=== PATIENT | male | born 1970 | race Caucasian/White ===

== ENCOUNTER → 2020-12-01 12:14 | Outpatient (CLI) | payer OTHER, MEDICAID, SELFPAY ==
[2020-12-01 19:36] LABS: Add Manual Diff / Slide Review NO; Basophils Absolute Auto 0 /uL (0-100); Basophils Percent Auto 0.2 % (0-2); Eosinophils Absolute Auto 0 /uL (0-450); Hematocrit 44.6 % (41-53); Hemoglobin 14.9 g/dL (13.5-17.5); Lymphocytes Absolute Auto 1700 /uL (1100-4500); Lymphocytes Percent Auto 25.6 % (25-40); Mean Corpuscular HGB Conc 33.4 % (30-36); Mean Corpuscular Volume 92.9 fL (80-100); Monocytes Absolute Auto 600 /uL (0-900); Monocytes Percent Auto 8.3 % (3-14); Neutrophils Absolute Auto 4400 /uL (1500-7000); Neutrophils Percent Auto 65.9 % (50-75); Platelet Count 261 X10^3/uL (150-400); Red Cell Distribution Width 11.9 % (11.6-14.8); White Blood Cell Count 6.7 X10^3/uL (4.5-11.0)
[2020-12-01 19:57] LABS: Alanine Aminotransferase 37 IU/L (<50); Albumin 4.3 g/dL (3.5-5.0); Albumin Globulin Ratio 1.6 (1.0-2.8); Alkaline Phosphatase 55 U/L (38-126); Aspartate Aminotransferase 53 IU/L (17-59); Bilirubin Total 0.6 mg/dL (0.2-1.3); Blood Urea Nitrogen 21 mg/dL (9-20); Calcium 9.9 mg/dL (8.4-10.2); Carbon Dioxide 31 mmol/L (22-32); Chloride 101 mmol/L (98-107); Estimated Glomerular Filt Rate > 60.0 mL/min (>60); Globulin 2.7 g/dL (1.7-4.1); Glucose 97 mg/dL (70-100); HEMOLYSIS < 15 (0-50); Potassium 4.7 mmol/L (3.4-5.1); Sodium 137 mmol/L (137-145)
[2020-12-01 20:47] LABS: HIV 1 & 2 Ab/Ag 4th Gen Combo NEGATIVE (NEGATIVE); Hep C Virus Ab w/Reflex Quant NEGATIVE s/c (NEGATIVE)
[2020-12-03 05:11] LABS: RPR Screen Non Reactive (Non Reactive)
[2020-12-05 18:17] LABS: HSV 2 IGG AB 3.41 index (0.00-0.90); HSV1IGG < 0.91 index (0.00-0.90)
== END ==
PROVIDERS: PCP Family Medicine; Visit Provider Family Medicine
DX: F39 Unspecified mood [affective] disorder (principal); M54.5 Low back pain; R53.83 Other fatigue; Z11.3 Encounter for screening for infections with a predominantly sexual mode of transmission
CPT/HCPCS: 80053; 84443; 85025; 86592; 86695; 86696; 86803; 87389

== ENCOUNTER 2021-08-18 23:30 | Emergency (ER) | payer OTHER, MEDICAID, SELFPAY ==
[2021-08-18 23:35] VITALS: BP 141/84; PULSE 74; RESP 18; TEMP 36.6; O2SAT 99; BMI 26.4
--- NOTE | 2021-08-18 23:57 | DI.CT.S_ITS ---
PROCEDURE: CT HEAD/BRAIN WO CON INDICATIONS: headache TECHNIQUE: Noncontrast 4.5 mm thick angled axial sections acquired from the foramen magnum to the vertex, with coronal and sagittal reformats. For radiation dose reduction, the following was used: automated exposure control, adjustment of mA and/or kV according to patient size. COMPARISON: None. FINDINGS: Image quality: Excellent. CSF spaces: Basal cisterns are patent. Ventricles are normal in size. There is an extra-axial fluid collection isodense to CSF within the left middle cranial fossa measuring to approximately 4.1 x 3.3 cm in transverse dimension. Findings likely represent an arachnoid cyst. There is prominence of the frontal extra-axial spaces bilaterally suggestive of mild cerebral volume loss. Brain: No intracranial hemorrhage, mass, or mass effect. [place]-white matter interface appears preserved. Skull and face: Calvarium and visualized facial bones are intact, without suspicious lesions. Sinuses: Visualized sinuses and mastoids are clear. IMPRESSION: 1. No definite acute intracranial abnormality. 2. Extra-axial fluid collection in the left middle cranial fossa likely represents an arachnoid cyst. Further evaluation may be obtained with MRI if clinically indicated. Dictated by: Remberto Cross M.D. on 08/19/2021 at 0:27 Approved by: Remberto Cross M.D. on 08/19/2021 at 0:29
[2021-08-19] VITALS (7 sets, daily range): BP systolic 126–139; BP diastolic 69–82; PULSE 59–76; RESP 18; O2SAT 97–99
--- NOTE | 2021-08-19 01:49 | DI.CT.S_ITS ---
PROCEDURE: CT ANGIO HEAD AND NECK INDICATIONS: severe sudden headache TECHNIQUE: Noncontrast images were performed earlier in the day and not repeated. After the administration of intravenous contrast, 1 mm thick sections acquired from the aortic arch through the [place]. Post-contrast 4.5 mm thick sections then re-acquired from the foramen magnum to the vertex. 3-dimensional lgqjwyl-omuhnkqtk-nkepfvdnin (MIP) and/or volume rendering reformats were acquired of the central intracranial vasculature and neck separately. COMPARISON: [facility], CT, CT HEAD/BRAIN WO CON, 08/19/2021, 0:04. FINDINGS: Image quality: Somewhat limited by bolus timing, with venous contamination. BRAIN: CSF spaces: Ventricles are normal in size and shape. Basal cisterns are patent. A nonenhancing arachnoid cyst can be seen involving the anterior aspect of the left middle cranial fossa. Brain: No midline shift. No intracranial bleeds or masses. [place]-white matter interface appears intact. Skull and face: Calvarium and facial bones appear intact, without suspicious lesions. Orbits appear normal. Sinuses: A small amount of mucosal thickening is seen within the maxillary sinuses. The paranasal sinuses otherwise appear clear. No abnormal fluid is seen within the mastoid air cells. . HEAD CT ANGIOGRAPHY: Anterior circulation: Intracranial internal carotid arteries are normal in size and flow. There is a diminutive right A1 segment, with a corresponding robust left A1 segment. This is considered to be a normal developmental variant of the [place], of typically no clinical consequence. The flow within the paired anterior cerebral arteries is otherwise normal and symmetric. The flow within the middle cerebral arteries is normal and symmetric. The anterior communicating artery is seen. No aneurysms are seen. Posterior circulation: Visualized portions of the vertebral arteries demonstrate normal caliber, and join to form a normal appearing basilar artery. There is a prominent right posterior communicating artery seen, with an accompanying diminutive right P1 segment. This is attributed to a type origin of the right posterior cerebral artery, which is considered to be a normal developmental variant of typically no clinical consequence. Flow within the posterior cerebral arteries is normal and symmetric. No aneurysms are seen. NECK CT ANGIOGRAPHY: Carotid system: The great vessels demonstrate a conventional anatomy as they arise from the aortic arch. The origins of the common carotid arteries appear patent. The common carotid arteries demonstrate normal caliber and courses. The bifurcation regions are both widely patent. The internal carotid arteries demonstrate normal calibers and courses. Posterior circulation: The origins of the vertebral arteries both appear widely patent. The more superior extracranial portions of both vertebral arteries also demonstrate normal courses and calibers. The left vertebral artery is dominant to the right. Soft tissues: Visualized neck soft tissues demonstrate no suspicious abnormalities. Bones: No suspicious bony lesions. Visualized cervical spine appears normally aligned. Cervical spine degenerative changes are seen, with at least moderate disc space narrowing at C6-C7. IMPRESSION: No aneurysms are seen. No significant intracranial arterial abnormality is seen. Within the arteries of the neck, no hemodynamically significant stenosis can be seen. Incidental note is made of: Left middle cranial fossa arachnoid cyst [id number] developmental anomalies Left vertebral artery dominant to the right Focal C6-C7 degenerative change Note: No significant discrepancy from the preliminary report. Any quantitative measurements of stenosis were performed using NASCET criteria. Dictated by: Spencer Myles M.D. on 08/19/2021 at 8:07 Approved by: Spencer Myles M.D. on 08/19/2021 at 8:11
[2021-08-19 02:16] LABS: Add Manual Diff / Slide Review NO; Basophils Absolute Auto 0 /uL (0-100); Basophils Percent Auto 0.6 % (0-2); Eosinophils Absolute Auto 0 /uL (0-450); Eosinophils Percent Auto 0.6 % (2-4); Hematocrit 39.5 % (41-53); Hemoglobin 13.6 g/dL (13.5-17.5); Lymphocytes Absolute Auto 2300 /uL (1100-4500); Lymphocytes Percent Auto 34.2 % (25-40); Mean Corpuscular HGB Conc 34.5 % (30-36); Mean Corpuscular Hemoglobin 31.4 PG (26-34); Mean Corpuscular Volume 91.1 fL (80-100); Monocytes Absolute Auto 600 /uL (0-900); Monocytes Percent Auto 8.6 % (3-14); Neutrophils Absolute Auto 3800 /uL (1500-7000); Platelet Count 229 X10^3/uL (150-400); Red Blood Cell Count 4.33 X10^6/uL (4.5-5.9); Red Cell Distribution Width 12.2 % (11.6-14.8); White Blood Cell Count 6.8 X10^3/uL (4.5-11.0)
[2021-08-19 02:23] LABS: Alanine Aminotransferase 24 IU/L (<50); Albumin 4.3 g/dL (3.5-5.0); Albumin Globulin Ratio 1.5 (1.0-2.8); Alkaline Phosphatase 42 U/L (38-126); Aspartate Aminotransferase 32 IU/L (17-59); BUN Creatinine Ratio 20.9 (6-22); Bilirubin Total 0.7 mg/dL (0.2-1.3); Blood Urea Nitrogen 19 mg/dL (9-20); Calcium 8.8 mg/dL (8.4-10.2); Carbon Dioxide 27 mmol/L (22-32); Chloride 101 mmol/L (98-107); Estimated Glomerular Filt Rate > 60.0 mL/min (>60); Globulin 2.8 g/dL (1.7-4.1); Glucose 99 mg/dL (70-100); HEMOLYSIS < 15 (0-50); Potassium 3.9 mmol/L (3.4-5.1); Sodium 135 mmol/L (137-145); Total Protein 7.1 g/dL (6.3-8.2)
[2021-08-19] MEDS: SODIUM CHLORIDE 0.9% 1,000 ML 1000 ML IV ×2 (02:49→06:19)
--- NOTE | 2021-08-19 03:03 | ED_ITS ---
HPI - Headache <Bharat Manzanares DO - Last Filed: 08/19/21 19:08> General Chief Complaint: Headache Stated Complaint: Hx of head trauma/headache/nausea Time Seen by Provider: 08/18/21 23:34 Mode of arrival: Ambulatory History of Present Illness HPI Narrative: 51-year-old male nonsmoker with history of mental health diagnoses and a prior closed head injury 5 years ago after a skiing injury presents with 2 days of generalized headache. He denies any obvious provocation or palliation. He denies any injury and takes no blood thinners. He has had no neck pain or focal neurologic findings such as numbness, tingling or weakness. He does state that he woke up 2 days ago with the severe headache and was sweaty for no apparent reason. He has seen his primary care provider who encouraged him to come [place] hence his decision to visit us. He denies runny nose, sore throat or cough. He has no chest pain or shortness of breath. He is otherwise well and free of complaint that his relative baseline Related Data Previous Rx's Medication Instructions Recorded ketorolac 10 mg tablet 10 mg PO Q6H PRN #14 tab 08/19/21 ondansetron 4 mg disintegrating 4 mg PO Q4H PRN #20 tab 08/19/21 tablet ondansetron 4 mg disintegrating 4 mg PO TID-QID PRN #10 tab 08/19/21 tablet pantoprazole 40 mg tablet,delayed 40 mg PO DAILY #30 tab 08/19/21 release (Protonix) Allergies Allergy/AdvReac Type Severity Reaction Status Date / Time No Known Drug Allergies Allergy Verified 08/19/21 04:26 Review of Systems <Bharat Manzanares DO - Last Filed: 08/19/21 19:08> Review of Systems Narrative: GENERAL: Denies chills, fatigue, malaise, fever, sweats. HEENT: Denies sinus pain, ear pain, sore throat, difficulty swallowing, dizziness. RESPIRATORY: Denies dyspnea, cough, wheezing, hemoptysis, sputum. CARDIOVASCULAR: Denies chest pain, palpitations, orthopnea, edema, GASTROINTESTINAL: Denies nausea, vomiting, abdominal pain, diarrhea, constipation, melena. : Denies dysuria, frequency, incontinence, hematuria, urinary retention. MUSCULOSKELETAL: denies weakness, joint pain, or bony pain SKIN: Denies rash, skin lesions, or other NEUROLOGIC: See HPI PSYCHIATRIC: No concerning psychosocial issues. 12 point review of systems is negative except for those stated above Patient History <Bharat Manzanares DO - Last Filed: 08/19/21 19:08> Social History Smoking Status: Never smoker Smoking Status: Never smoker Substance Use Type: marijuana Exam <Bharat Manzanares DO - Last Filed: 08/19/21 19:08> Narrative Exam Narrative: GENERAL: [51] year old patient appears stated age. Well-developed patient, in mild distress. HEAD: Atraumatic. Normocephalic. EYES: Pupils equal round and reactive. Extraocular motions intact. No scleral icterus. No injection or drainage. ENT: Nose without bleeding, purulent drainage. Throat without erythema, tonsillar hypertrophy or exudate. Airway patent. NECK: Trachea midline. Non tender CARDIOVASCULAR: Regular rate and rhythm without murmurs, gallops, or rubs. RESPIRATORY: Clear to auscultation. Breath sounds equal bilaterally. No wheezes, rales, or rhonchi. GASTROINTESTINAL: Abdomen soft, non-tender, nondistended. EXTREMITIES: No edema or joint tenderness. BACK: Nontender without deformity or crepitance. No flank tenderness. NEURO: AOx3. SKIN: No rash or erythema of visible areas NIH Stroke Scale 1a. LOC: Patient is alert and keenly responsive (0) 1b. LOC Questions: Patient answers both LOC questions accurately (0) 1c. LOC Commands: Patient performs both tasks correctly (0) 2. Best Gaze: Normal (0) 3. Visual: No visual loss (0) 4. Facial palsy: Normal symmetrical movements (0) 5. Motor arm: No drift (0) 6. Motor leg: No drift (0) 7. Limb ataxia: Absent (0) 8. Sensory: Normal (0) 9. Best language: No aphasia; normal (0) 10. Dysarthria: Normal (0) 11. Extinction and inattention: No abnormality (0) NIHSS: 0 Initial Vital Signs Initial Vital Signs: Vital Signs Temperature 98 F 08/18/21 23:35 Pulse Rate 74 08/18/21 23:35 Respiratory Rate 18 08/18/21 23:35 Blood Pressure 141/84 H 03/25/22 23:35 Pulse Oximetry 99 08/18/21 23:35 <Octaviano Jones MD - Last Filed: 08/19/21 21:16> Initial Vital Signs Initial Vital Signs: Vital Signs Temperature 98 F 08/18/21 23:35 Pulse Rate 74 08/18/21 23:35 Respiratory Rate 18 08/18/21 23:35 Blood Pressure 141/84 H 08/18/21 23:35 Pulse Oximetry 99 08/18/21 23:35 Course <Bharat Manzanares DO - Last Filed: 08/19/21 19:08> Orders Ordered: Discontinued Medications Acetaminophen (Acetaminophen 325 Mg Tablet) 975 mg PO NOW ONE Stop: 08/19/21 04:50 Last Admin: 08/19/21 04:55 Dose: 975 mg Documented by: JOHNATHON Sodium Chloride (Normal Saline 0.9%) 1,000 mls @ 1,000 mls/hr IV BOLUS ONE Stop: 08/19/21 02:48 Last Infusion: 08/19/21 06:56 Dose: 0 mls/hr Documented by: Admin: 08/19/21 02:49 Dose: 1,000 mls/hr Documented by: JOHNATHON Sodium Chloride (Normal Saline 0.9%) 1,000 mls @ 1,000 mls/hr IV BOLUS ONE Stop: 08/19/21 07:06 Last Infusion: 08/19/21 08:55 Dose: 0 mls/hr Documented by: Admin: 08/19/21 06:19 Dose: 1,000 mls/hr Documented by: JOHNATHON Ketorolac Tromethamine (Ketorolac 30 Mg/Ml Vial) 15 mg IV NOW ONE Stop: 08/19/21 04:11 Last Admin: 08/19/21 04:15 Dose: 15 mg Documented by: RAMÓN Metoclopramide HCl (Metoclopramide 10 Mg/2 Ml Inj) 10 mg IV NOW ONE Stop: 08/19/21 06:08 Last Admin: 08/19/21 06:19 Dose: 10 mg Documented by: JOHNATHON Ondansetron HCl (Ondansetron 4 Mg/2 Ml Inj) 4 mg IV NOW ONE Stop: 08/19/21 04:50 Last Admin: 08/19/21 04:55 Dose: 4 mg Documented by: JOHNATHON Pantoprazole Sodium (Pantoprazole 40 Mg Vial) 40 mg IV NOW ONE Stop: 08/19/21 06:08 Last Admin: 08/19/21 06:19 Dose: 40 mg Documented by: JOHNATHON Consultations Consultation #1: discussed large arachnoid cyst [place] CT[place] [facility] [place] reviewed clinical course and has viewed images and states there is little to no likelihood that this is contributing to his symptoms and almost surely an incidental finding. Vital Signs Vital signs: Vital Signs - 8 hr 08/19/21 03:00 08/19/21 04:24 08/19/21 06:27 Pulse Rate 72 76 68 Respiratory Rate 18 18 18 Blood Pressure 131/79 128/82 128/69 Pulse Oximetry 99 98 98 08/19/21 08:56 08/19/21 08:57 08/19/21 09:00 Pulse Rate 62 59 L Respiratory Rate Blood Pressure 126/76 126/82 Pulse Oximetry 97 97 <Octaviano Jones MD - Last Filed: 08/19/21 21:16> Course Course Narrative: Care was assumed from Dr. Manzanares at change of shift. Headache and nausea resolv ed with meds and IV hydration. A 4.1x3.3cm arachnoid cyst is noted in the left middle cranial fossa. He is using OTC analgesics. I sent a prescription for Zofran to his pharmacy in [place], [place]. I did discuss the case with a local neurologist, he feels the patient should initial follow-up with his PCM for headache management and be referred to a neurologist --as needed.Radha Jones MD Orders Ordered: Discontinued Medications Acetaminophen (Acetaminophen 325 Mg Tablet) 975 mg PO NOW ONE Stop: 08/19/21 04:50 Last Admin: 08/19/21 04:55 Dose: 975 mg Documented by: JOHNATHON Sodium Chloride (Normal Saline 0.9%) 1,000 mls @ 1,000 mls/hr IV BOLUS ONE Stop: 08/19/21 02:48 Last Infusion: 08/19/21 06:56 Dose: 0 mls/hr Documented by: Admin: 08/19/21 02:49 Dose: 1,000 mls/hr Documented by: JOHNATHON Sodium Chloride (Normal Saline 0.9%) 1,000 mls @ 1,000 mls/hr IV BOLUS ONE Stop: 08/19/21 07:06 Last Infusion: 08/19/21 08:55 Dose: 0 mls/hr Documented by: Admin: 08/19/21 06:19 Dose: 1,000 mls/hr Documented by: JOHNATHON Ketorolac Tromethamine (Ketorolac 30 Mg/Ml Vial) 15 mg IV NOW ONE Stop: 08/19/21 04:11 Last Admin: 08/19/21 04:15 Dose: 15 mg Documented by: RAMÓN Metoclopramide HCl (Metoclopramide 10 Mg/2 Ml Inj) 10 mg IV NOW ONE Stop: 08/19/21 06:08 Last Admin: 08/19/21 06:19 Dose: 10 mg Documented by: JOHNATHON Ondansetron HCl (Ondansetron 4 Mg/2 Ml Inj) 4 mg IV NOW ONE Stop: 08/19/21 04:50 Last Admin: 08/19/21 04:55 Dose: 4 mg Documented by: JOHNATHON Pantoprazole Sodium (Pantoprazole 40 Mg Vial) 40 mg IV NOW ONE Stop: 08/19/21 06:08 Last Admin: 08/19/21 06:19 Dose: 40 mg Documented by: JOHNATHON Vital Signs Vital signs: Vital Signs - 8 hr 08/19/21 03:00 08/19/21 04:24 08/19/21 06:27 Pulse Rate 72 76 68 Respiratory Rate 18 18 18 Blood Pressure 131/79 128/82 128/69 Pulse Oximetry 99 98 98 08/19/21 08:56 08/19/21 08:57 08/19/21 09:00 Pulse Rate 62 59 L Respiratory Rate Blood Pressure 126/76 126/82 Pulse Oximetry 97 97 MDM - Headache <Bharat Manzanares DO - Last Filed: 08/19/21 19:08> Lab Data Result diagrams: 08/19/21 02:00 08/19/21 02:00 Labs: Lab Results 08/19/21 08/19/21 08/19/21 Range/Units 02:00 02:00 04:15 WBC 6.8 (4.5-11.0) X10^3/uL RBC 4.33 L (4.5-5.9) X10^6/uL Hgb 13.6 (13.5-17.5) g/dL Hct 39.5 L (41-53) % MCV 91.1 (80-100) fL MCH 31.4 (26-34) PG MCHC 34.5 (30-36) % RDW 12.2 (11.6-14.8) % Plt Count 229 (150-400) X10^3/uL Neut % (Auto) 56.0 (50-75) % Lymph % (Auto) 34.2 (25-40) % [place] % (Auto) 8.6 (3-14) % Eos % (Auto) 0.6 L (2-4) % Baso % (Auto) 0.6 (0-2) % Neut # (Auto) 3800 (3801-8429) /uL Lymph # (Auto) 2300 (6852-2507) /uL [place] # (Auto) 600 (0-900) /uL Eos # (Auto) 0 (0-450) /uL Baso # (Auto) 0 (0-100) /uL Sodium 135 L (137-145) mmol/L Potassium 3.9 (3.4-5.1) mmol/L Chloride 101 (98-107) mmol/L Carbon Dioxide 27 (22-32) mmol/L BUN 19 (9-20) mg/dL Creatinine 0.91 (0.66-1.25) mg/dL Estimated GFR > 60.0 (>60) mL/min BUN/Creatinine Ratio 20.9 (6-22) Glucose 99 (70-100) mg/dL Calcium 8.8 (8.4-10.2) mg/dL Total Bilirubin 0.7 (0.2-1.3) mg/dL AST 32 (17-59) IU/L ALT 24 (<50) IU/L Alkaline Phosphatase 42 (38-126) U/L Total Protein 7.1 (6.3-8.2) g/dL Albumin 4.3 (3.5-5.0) g/dL Globulin 2.8 (1.7-4.1) g/dL Albumin/Globulin Ratio 1.5 (1.0-2.8) SARS-CoV-2 (PCR) Negative (Negative) Influenza A (RT-PCR) Flu a negative (NEGATIVE) Influenza B (RT-PCR) Flu b negative (NEGATIVE) Point of Care Testing Glucose POC [address] scan - head: Radiologist's Impression: Chart Viewer Diagnostics Subcategory All Activity ??:?? All Time ??:?? All Subcategories Filter Laboratory Imaging Microbiology Pathology Blood Bank Tests Cardiovascular Other Specialty DATE TYPE STATUS REF RANGE/AUTHOR Hx Today 01:49 Head/Neck CTA ? 08/18/21 23:[address] Signed Remberto Cross Fielder J ED 51, M?1970 MRN#? [id number] REG ER,?Main ED??R06?? 190.5cm 96.162kg BMI: 26.5kg/m? Headache Acc#? [id number] Resus Status Not Ordered No Hx Avail Special Indicators No Data to Display Home Meds Prescription Monitoring Program No Data to Display Allergies No Known Drug Allergies Problems No Data to Display Vital Signs Today 06:27 BP 128/69? Pulse 68? Resp 18? O2 Sat 98? Delivery Room Air? Diagnostics Reports Dhruv Savage??51??M??1970 ? Allergy/Adv: No Known Drug Allergies (More??) Close Head/Neck CTA 08/19/[address] (Signed) Remberto Cross - 08/18/21 Launch?[place] [address] CT Scan Report Signed Patient: Dhruv Savage MR#: [id number] : 1970 Acct:[id number] Age/Sex: 51 / M Date of Service: 08/18/21 Loc: ED Accession Number: [id number] ?? Procedure: CT head/brain wo con Ordering Provider: Bharat Manzanares D.O. PROCEDURE:? CT HEAD/BRAIN WO CON ? INDICATIONS:? headache ? TECHNIQUE:? Noncontrast 4.5 mm thick angled axial sections acquired from the foramen magnum to the vertex, with coronal and sagittal reformats.? For radiation dose reduction, the following was used:? automated exposure control, adjustment of mA and/or kV according to patient size.? ? COMPARISON:? None. ? FINDINGS:? Image quality:? Excellent.? ? CSF spaces:? Basal cisterns are patent.? Ventricles are normal in size.? There is an extra-axial fluid collection isodense to CSF within the left middle cranial fossa measuring to approximately 4.1 x 3.3 cm in transverse dimension.? Findings likely represent an arachnoid cyst.? There is prominence of the frontal extra-axial spaces bilaterally suggestive of mild cerebral volume loss. ? Brain:? No intracranial hemorrhage, mass, or mass effect.? [place]-white matter interface appears preserved.? ? Skull and face:? Calvarium and visualized facial bones are intact, without suspicious lesions.? ? Sinuses:? Visualized sinuses and mastoids are clear.? ? IMPRESSION:? ? 1. No definite acute intracranial abnormality. ? 2. Extra-axial fluid collection in the left middle cranial fossa likely represents an arachnoid cyst.? Further evaluation may be obtained with MRI if clinically indicated. ? ? Dictated by: Remberto Cross M.D. on 08/19/2021 at 0:27 ? ? Approved by: Remberto Cross M.D. on 08/19/2021 at 0:29 ? CTA Head/Neck: Radiologist's Impression: No high-grade stenosis, widely patent cervical vertebral arteries, no aneurysm or AVM. Arachnoid cyst as noted previously MDM Narrative Medical decision making narrative: Headache considerations include, but not limited to: Subarachnoid hemorrhage, but unlikely as patient denies sudden onset of pain, not worst of life, or neck pain Meningitis considered, but thought unlikely given lack of Brudzinski's, Kernig's sign, altered mental status or fever Giant cell arteritis considered, but thought unlikely given lack of unilateral findings, pain in catholic, vision change HTN Emergency considered, but thought unlikely given normal vitals Other serious diagnoses considered unlikely given lack of red flag findings such as sudden onset, increasing frequency, immunocompromise, systemic signs (fever, chills, stiff neck, or rash), focal neurologic findings, trauma, blood thinners, etc. Patient's symptoms improved over duration of stay with above-stated therapies. Findings and discharge diagnosis discussed with patient/family followed by verbalization of understanding Return precautions discussed with patient/family whom verbalize understanding. <Octaviano Jones MD - Last Filed: 08/19/21 21:16> Lab Data Labs: Lab Results 03/26/22 03/26/22 03/26/22 Range/Units 02:00 02:00 04:15 WBC 6.8 (4.5-11.0) X10^3/uL RBC 4.33 L (4.5-5.9) X10^6/uL Hgb 13.6 (13.5-17.5) g/dL Hct 39.5 L (41-53) % MCV 91.1 (80-100) fL MCH 31.4 (26-34) PG MCHC 34.5 (30-36) % RDW 12.2 (11.6-14.8) % Plt Count 229 (150-400) X10^3/uL Neut % (Auto) 56.0 (50-75) % Lymph % (Auto) 34.2 (25-40) % [place] % (Auto) 8.6 (3-14) % Eos % (Auto) 0.6 L (2-4) % Baso % (Auto) 0.6 (0-2) % Neut # (Auto) 3800 (8514-8579) /uL Lymph # (Auto) 2300 (6083-1835) /uL [place] # (Auto) 600 (0-900) /uL Eos # (Auto) 0 (0-450) /uL Baso # (Auto) 0 (0-100) /uL Sodium 135 L (137-145) mmol/L Potassium 3.9 (3.4-5.1) mmol/L Chloride 101 (98-107) mmol/L Carbon Dioxide 27 (22-32) mmol/L BUN 19 (9-20) mg/dL Creatinine 0.91 (0.66-1.25) mg/dL Estimated GFR > 60.0 (>60) mL/min BUN/Creatinine Ratio 20.9 (6-22) Glucose 99 (70-100) mg/dL Calcium 8.8 (8.4-10.2) mg/dL Total Bilirubin 0.7 (0.2-1.3) mg/dL AST 32 (17-59) IU/L ALT 24 (<50) IU/L Alkaline Phosphatase 42 (38-126) U/L Total Protein 7.1 (6.3-8.2) g/dL Albumin 4.3 (3.5-5.0) g/dL Globulin 2.8 (1.7-4.1) g/dL Albumin/Globulin Ratio 1.5 (1.0-2.8) SARS-CoV-2 (PCR) Negative (Negative) Influenza A (RT-PCR) Flu a negative (NEGATIVE) Influenza B (RT-PCR) Flu b negative (NEGATIVE) Point of Care Testing Glucose POC 92 Discharge Plan Departure Patient Disposition: Home Clinical Impression: Headache Instructions: DI for Headache Activity Restrictions/Additional Instructions: *You have been diagnosed with [ Headache ] *What to do: *Take medications as directed. I sent a few prescriptions to your pharmacy *Follow up with your primary care provider in 2-3 days, call for an appointment. Let them know you were seen in the Emergency Department and that we ask that you be seen in follow up *Return to ER if you should have any new, worsening or concerning symptoms, such as [ fever > 101F, neck pain or stiffness, vomiting, confusion, seizure, fo naun weakness, vision change, speech deficit or other concerning symptoms ] Prescriptions: New ketorolac 10 mg tablet 10 mg PO Q6H PRN (Reason: pain) Qty: 14 0RF pantoprazole [Protonix] 40 mg tablet,delayed release (DR/EC) 40 mg PO DAILY Qty: 30 0RF ondansetron 4 mg tablet,disintegrating 4 mg PO TID-QID PRN (Reason: nausea and vomiting) Qty: 10 0RF ondansetron 4 mg tablet,disintegrating 4 mg PO Q4H PRN (Reason: nausea and vomiting) Qty: 20 0RF
[2021-08-19] MEDS: KETOROLAC 30 MG/ML VIAL 15 MG IV (04:15)
[2021-08-19] MEDS: ONDANSETRON 4 MG/2 ML INJ IV (04:55)
[2021-08-19] MEDS: ACETAMINOPHEN 325 MG TABLET 975 MG PO (04:55)
[2021-08-19 05:06] LABS: Influenza A - CEPHEID Flu A NEGATIVE (NEGATIVE); Influenza B - CEPHEID Flu B NEGATIVE (NEGATIVE)
[2021-08-19 05:11] LABS: COVID-19 CEPHEID PCR (VTM/NP) Negative (Negative)
[2021-08-19] MEDS: METOCLOPRAMIDE 10 MG/2 ML INJ IV (06:19)
[2021-08-19] MEDS: PANTOPRAZOLE 40 MG VIAL IV (06:19)
== END 2021-08-19 09:14 | disposition home or self-care (01) ==
PROVIDERS: Emergency Provider Emergency Medicine
DX: R51.9 Headache, unspecified (principal); G93.0 Cerebral cysts; Z20.822 Contact with and (suspected) exposure to COVID-19
CPT/HCPCS: 36415; 70450; 70496; 70498; 80053; 82962; 85025; 87635; 96361; 96374; 96375; 99284; C9803; C9113; J1885; J2405; J2765; Q9967

== ENCOUNTER → 2023-04-02 07:51 | Outpatient (CLI) | payer OTHER, MEDICAID, SELFPAY ==
--- NOTE | 2023-04-02 07:55 | DI.MRI.S_ITS ---
PROCEDURE: MR CERVICAL SPINE WO CON INDICATIONS: Cervical radiculopathy TECHNIQUE: Noncontrast sagittal T1 spin echo and T2 fast spin echo, sagittal STIR, foraminal oblique sagittal T2 fast spin echo, and axial gradient echo or T2 fast spin echo through the cervical spine. COMPARISON: [facility], CT, CT ANGIO HEAD AND NECK, 08/19/2021, 2:32. [facility]), CR, XR CERVICAL SPINE 2V OR 3V, 04/27/2022, 16:38. FINDINGS: Image quality: Excellent. Alignment and Curvature: There is overall straightening of the normal cervical lordosis. No focal AP alignment abnormality is seen. Bone Marrow: Marrow demonstrates normal overall signal. Spinal Cord: Visualized spinal cord has normal size and signal. No cerebellar tonsillar herniation. Paraspinous Soft Tissues: No paravertebral masses. Prevertebral soft tissues are normal in thickness. C2-C3: Normal appearance. C3-C4: No significant abnormality is seen. C4-C5: The disc height and disk signal are well-preserved. A mild degree of generalized disc osteophyte complex is seen. Mild to moderate facet hypertrophy is seen. There is mild right-sided and minimal left-sided neural foraminal narrowing. Minimal central canal narrowing is seen. C5-C6: The disc height and disk signal are well-preserved. Mild to moderate disc osteophyte complex is seen, which is eccentric to the right. There is a right subarticular/foraminal disc osteophyte protrusion, as on series 6, image 30. Moderate facet joint hypertrophy is seen. There is moderate to severe right-sided and moderate left-sided neural foraminal narrowing. Mild to moderate central canal narrowing is seen, with minimal mass effect upon the ventral spinal cord. C6-C7: Moderate loss of disc height is seen. Loss of disc signal is seen. Moderate disc osteophyte complex is seen, which is eccentric to the left. There is a central/left disc osteophyte protrusion. Mild to moderate facet hypertrophy is seen. Moderate to severe bilateral neural foraminal narrowing is seen at this level. Moderate central canal narrowing is seen. There is associated mass effect upon the ventral spinal cord. C7-T1: Normal appearance. IMPRESSION: Multiple levels of cervical spine degenerative change can be seen, which are overall worst at the C6-C7 level. Straightening of the normal cervical lordosis is seen, which is commonly observed in patients with muscular spasm. Dictated by: Spencer Myles M.D. on 04/02/2023 at 13:11 Approved by: Spencer Myles M.D. on 04/02/2023 at 13:16
--- NOTE | 2023-04-02 07:55 | DI.MRI.S_ITS ---
PROCEDURE: MR LUMBAR SPINE WO CON INDICATIONS: Lumbar radiculopathy TECHNIQUE: Noncontrast sagittal T1 spin echo and T2 fast echo, sagittal STIR, and T2 fast spin echo through the lumbar spine. In cases with scoliosis, additional coronal T2 fast spin echo may be performed. COMPARISON: [facility], MR, MR CERVICAL SPINE WO CON, 04/02/2023, 8:09. [facility] ([place]), CR, XR LUMBAR SPINE 2-3V, 04/27/2022, 16:38. FINDINGS: Image quality: Diagnostic, with note made of motion artifact. Alignment and Curvature: There is overall straightening of the normal lumbar lordosis. Minimal retrolisthesis can be seen at the L4-L5 level. There is mild grade 1 retrolisthesis at L5-S1. Bone Marrow: Marrow is of normal overall signal. No acute vertebral body compression fractures. Spinal Cord: Conus medullaris terminates at the L1 level. Visualized cord demonstrates normal signal and size. Paraspinous Soft Tissues: No paravertebral masses. T12-L1: Normal appearance. L1-L2: No significant abnormality is seen. L2-L3: Normal appearance. L3-L4: The disc height and disk signal are well-preserved. Mild to moderate disc bulge is seen, with a mild central disc protrusion. Mild facet joint hypertrophy is seen. There is mild right-sided and no significant left-sided neural foraminal narrowing. Minimal central canal narrowing is seen. L4-L5: Mild loss of disc height is seen. Loss of disc signal is seen. Moderate disc bulge is seen, which is eccentric to the left. There is a mild central/left disc extrusion, with mild inferior migration of the disc material. There is moderate right-sided and mild left-sided facet hypertrophy. There is moderate left-sided and mild right-sided neural foraminal narrowing. Moderate central canal narrowing is seen. L5-S1: The disc height is well-preserved. Loss of disc signal is seen at this level. Mild to moderate disc bulge is seen. There is a central/right disc extrusion seen, as on series 8, image 34 and on series 5, image 8. Mild to moderate facet hypertrophy is seen. There is moderate left-sided and no significant right-sided neural foraminal narrowing. Moderate central canal narrowing is seen. IMPRESSION: Focal lower lumbar spine degenerative changes are seen, with disc extrusions seen at the L4-L5 and the L5-S1 levels. There is moderate right-sided neural foraminal narrowing at L4-L5 and moderate left-sided neural foraminal narrowing at L5-S1. Dictated by: Spencer Myles M.D. on 04/02/2023 at 13:16 Approved by: Spencer Myles M.D. on 04/02/2023 at 13:19
[2023-04-02 11:30] LABS: Alanine Aminotransferase 44 IU/L (<50); Albumin 3.9 g/dL (3.5-5.0); Albumin Globulin Ratio 1.4 (1.0-2.8); Alkaline Phosphatase 54 U/L (38-126); Aspartate Aminotransferase 61 IU/L (17-59); BUN Creatinine Ratio 16.5 (6-22); Bilirubin Total 0.8 mg/dL (0.2-1.3); Blood Urea Nitrogen 17 mg/dL (9-20); Calcium 9.6 mg/dL (8.4-10.2); Carbon Dioxide 28 mmol/L (22-32); Chloride 104 mmol/L (98-107); Cholesterol 187 mg/dL (140-199); Estimated Glomerular Filt Rate > 60 mL/min (>60); Globulin 2.7 g/dL (1.7-4.1); Glucose 92 mg/dL (70-100); HDL Cholesterol 50 mg/dL (40-60); HEMOLYSIS < 15 (0-50); LDL Cholesterol Calculated 122 mg/dL (<100); Potassium 4.2 mmol/L (3.4-5.1); Sodium 137 mmol/L (137-145); Total Protein 6.6 g/dL (6.3-8.2); Triglycerides 77 mg/dL (35-150)
[2023-04-02 21:54] LABS: Prostate Specific Antigen Scrn 0.739 ng/mL (0.1-4.0)
[2023-04-03 05:32] LABS: HBsAg Screen Negative (Negative); Hepatitis A Antibody IgM Negative (Negative); Hepatitis B Core Antibody IgM Negative (Negative); Hepatitis C Antibody Non Reactive (Non Reactive); RPR Screen Non Reactive (Non Reactive)
[2023-04-11 08:13] LABS: Percent Free Testosterone 1.91 % (1.50-4.20); Testosterone Free 7.01 ng/dL (5.00-21.00); Testosterone Total 367.1 ng/dL (264.0-916.0)
[2023-04-29 10:15] LABS: Treponema pallidum Antibodies Non Reactive
== END ==
PROVIDERS: Physician Assistant Medical; PCP Family Medicine; Referring Provider Anesthesiology; Visit Provider Anesthesiology
DX: M47.22 Other spondylosis with radiculopathy, cervical region (principal); M47.26 Other spondylosis with radiculopathy, lumbar region; M47.27 Other spondylosis with radiculopathy, lumbosacral region; M51.16 Intervertebral disc disorders with radiculopathy, lumbar region; M51.17 Intervertebral disc disorders with radiculopathy, lumbosacral region; M48.061 Spinal stenosis, lumbar region without neurogenic claudication; M48.07 Spinal stenosis, lumbosacral region; N50.89 Other specified disorders of the male genital organs; B36.0 Pityriasis versicolor; M79.18 Myalgia, other site; Z12.5 Encounter for screening for malignant neoplasm of prostate; Z76.89 Persons encountering health services in other specified circumstances; Z91.89 Other specified personal risk factors, not elsewhere classified
CPT/HCPCS: 20553; 36415; 72141; 72148; 76942; 80053; 80061; 80074; 84402; 84403; 86592; 86780; 99213; G0103

== ENCOUNTER → 2023-04-16 10:25 | Outpatient (CLI) | payer OTHER, MEDICAID, SELFPAY ==
--- NOTE | 2023-04-16 10:26 | DI.US.S_ITS ---
PROCEDURE: US SCROTUM INDICATIONS: TESTICULAR MASS TECHNIQUE: Real-time scanning was performed of the scrotum and testicles, with image documentation. Color and pulse Doppler interrogation was performed of both testicles. COMPARISON: None. FINDINGS: Right: Testicle is normal in size at 5.5 x 4.2 x 2.5 cm, and homogenous in echotexture. Epididymis is normal in overall size and morphology. No hydrocele or varicoceles. Overlying scrotal skin is normal in thickness. Left: Testicle is normal in size at 5.4 x 3.8 x 2.9 cm, and homogeneous in echotexture. Epididymis is normal in overall size and morphology. Epididymal cysts x2 measuring 1.5 cm and 0.7 cm. No hydrocele or varicoceles. Overlying scrotal skin is normal in thickness. Doppler: Color and pulse Doppler demonstrate normal and symmetric arterial flow in both testicles. IMPRESSION: 1. Benign left epididymal cyst measuring 1.5 cm likely corresponding to the palpable abnormality. 2nd adjacent epididymal cyst measuring 0.7 cm. 2. No testicular mass. 3. No hydrocele. No varicocele. Dictated by: Bertin Rubin M.D. on 04/16/2023 at 12:30 Approved by: Bertin Rubin M.D. on 04/16/2023 at 12:33
== END ==
PROVIDERS: PCP Family Medicine; Referring Provider Physician Assistant Medical; Visit Provider Physician Assistant Medical
DX: N50.89 Other specified disorders of the male genital organs (principal); N50.3 Cyst of epididymis; Z76.89 Persons encountering health services in other specified circumstances; M54.6 Pain in thoracic spine; G89.29 Other chronic pain; M79.18 Myalgia, other site; M54.50 Low back pain, unspecified
CPT/HCPCS: 20553; 76870; 76942; 87491; 87591; 99212

== ENCOUNTER → 2023-04-16 12:30 | Outpatient (CLI) | payer OTHER, MEDICAID, SELFPAY ==
[2023-04-16 17:30] LABS: Urine N gonorrhoeae NOT DETECTED
[2023-04-16 17:32] LABS: Urine Chlamydia NOT DETECTED
== END ==
PROVIDERS: PCP Family Medicine; Referring Provider Physician Assistant Medical; Visit Provider Physician Assistant Medical
DX: Z76.89 Persons encountering health services in other specified circumstances (principal)
CPT/HCPCS: 87491; 87591

== ENCOUNTER 2023-04-17 08:51 | Outpatient (CLI) | payer OTHER, MEDICAID, SELFPAY ==
[2023-04-17 09:00] VITALS: BP 130/80; PULSE 62; RESP 18; TEMP 36.4; O2SAT 99
--- NOTE | 2023-04-17 09:30 | DI.RAD.S_ITS ---
PROCEDURE: PAIN L INTERLAMINAR/CAUDAL INJ INDICATIONS: spinal stenosis COMPARISON: [facility], MR, MR LUMBAR SPINE WO CON, 04/02/2023, 8:09. [facility] ([place]), CR, XR LUMBAR SPINE 2-3V, 04/27/2022, 16:38. FINDINGS: A caudally placed needle is seen within the sacral canal. The position of the tip of the needle was confirmed with injection of a small amount of iodinated contrast. IMPRESSION: Intraprocedural examination within normal limits. Dictated by: Spencer Myles M.D. on 04/17/2023 at 11:08 Approved by: Spencer Myles M.D. on 04/17/2023 at 11:09
[2023-04-17 09:42] VITALS: BP 154/88; PULSE 57; RESP 16; O2SAT 100
[2023-04-17 09:45] VITALS: BP 136/79; PULSE 62; RESP 18; O2SAT 100
[2023-04-17] MEDS: DEXAMETHASONE 10 MG/ML VIAL INJ (09:49)
[2023-04-17] MEDS: iopamidoL 15 ML VIAL 3 ML INJ (09:49)
[2023-04-17 09:50] VITALS: BP 136/79; PULSE 60; RESP 18; O2SAT 100
[2023-04-17 09:57] VITALS: BP 118/75; PULSE 72; RESP 16; O2SAT 99
[2023-04-17 10:03] VITALS: BP 124/81; PULSE 68; RESP 16; O2SAT 100
--- NOTE | 2023-04-17 12:32 | P.PCN_ITS ---
Date/Time/Diagnoses Date of procedure: 04/17/23 Time of procedure: 09:30 Procedure Notes Physician: Ernie Abreu Total Fluoroscopy time (seconds): 9 Total sedation minutes: 0 Procedure in detail & Post-procedure care: Caudal Epidural Steroid Injection Indications: Dhruv is presenting for treatment of lumbar radiculopathy with low back and leg pain. Preoperative diagnosis: Lumbar radiculopathy Postoperative diagnosis: Same Focused Examination: Ax3 Mood and affect are normal Vital Signs: VSS Consent: Following review of allergies and potential side effects/complications, including, but not necessarily limited to, infection, allergic reaction, local tissue breakdown, stroke, temporary or permanent nerve injury, paralysis, and possible , the patient indicated that they understood and agreed to proceed.? An informed consent document was signed by the patient, witnessed by a nurse and placed in the patient's chart.? Additionally, other treatment options including medications and physical therapy were reviewed with the patient. All questions were answered. Site was then marked. Anesthesia: Local Position: Prone Monitoring: NIBP, Pulse oximetry, 3 lead EKG Needle used: 25 gauge, 3.5 in spinal needle Contrast: Isovue 300-M 2mL Injectate: Dexamethasone 10 mg with 1% lidocaine 2 mL and normal saline 2 mL Technique: The skin was prepped with chloraprep and then draped in a sterile fashion. Time out was performed as per protocol. Oxygen applied via NC. The entry point for entering/approaching the epidural space by a caudal approach through the sacral hiatus was identified. Skin and subcutaneous structures of the needle entry site was then infiltrated with 3 mL of lidocaine 1%. Under AP and lateral control, the needle was guided through the sacral hiatus to the S3 level. Contrast was then injected and the spread was consistent with the epidural space. There was no evidence for intravascular or intrathecal uptake. After negative aspiration, the above-mentioned injectate was then slowly administered and the needle withdrawn. The patient expressed no unusual discomfort or paresthesias during needle positioning or injection. Band-Aids applied to injection sites. EBL: less than 1 ml Complications: None Post Procedure: Patient was taken to the recovery and monitored. The patient was provided a Pain Log to continue to record the patient's response to the target- specific procedure prior to the patient's follow-up visit with the referring physician. Patient was stable upon discharge. Detailed post procedure instructions were provided. Patient was asked to call in the event of worsening pain, fever, weakness, numbness or bladder or bowel incontinence.
== END 2023-04-17 10:08 | disposition home or self-care (01) ==
LOC: RAD 08:52
PROVIDERS: PCP Family Medicine; Referring Provider Anesthesiology; Visit Provider Anesthesiology
DX: M54.16 Radiculopathy, lumbar region (principal)
CPT/HCPCS: 62323; J1100; J2250

== ENCOUNTER 2023-04-24 12:41 | Outpatient (CLI) | payer OTHER, MEDICAID, SELFPAY ==
[2023-04-24] VITALS (8 sets, daily range): BP systolic 131–142; BP diastolic 66–104; PULSE 67–77; RESP 9–20; TEMP 36.6; O2SAT 98–100
--- NOTE | 2023-04-24 13:00 | DI.RAD.S_ITS ---
PROCEDURE: PAIN C/T INTERLAMINAR INJECT INDICATIONS: Radiculopathy COMPARISON: None. FINDINGS: Fluoroscopic spot filming was performed to verify placement of spinal needles at the C7-T1 level(s), as labeled on the films. Appropriate location(s) of the needle tip(s) was confirmed by injection of iodinated contrast. IMPRESSION: Needle placement as above. Dictated by: Alla Buck M.D. on 04/24/2023 at 22:32 Approved by: Alla Buck M.D. on 04/24/2023 at 22:32
[2023-04-24] MEDS: MIDAZOLAM 2 MG/2 ML VIAL IV (13:17)
[2023-04-24] MEDS: DEXAMETHASONE 10 MG/ML VIAL INJ (13:22)
[2023-04-24] MEDS: iopamidoL 15 ML VIAL 3 ML INJ (13:23)
--- NOTE | 2023-04-24 15:53 | P.PCN_ITS ---
Date/Time/Diagnoses Date of procedure: 04/24/23 Time of procedure: 13:00 Procedure Notes Physician: Ernie Abreu Total Fluoroscopy time (seconds): 20 Total sedation minutes: 10 Procedure in detail & Post-procedure care: C7-T1 Interlaminar Epidural Steroid Injection Indications: Dhruv is presenting for treatment of cervical radiculopathy with neck and arm pain. Preoperative diagnosis: Cervical radiculopathy Postoperative diagnosis: Same Focused Examination: Ax3 Mood and affect are normal Vital Signs: VSS ASA: 2 Consent: Following review of allergies and potential side effects/complications, including, but not necessarily limited to, infection, allergic reaction, local tissue breakdown, stroke, temporary or permanent nerve injury, paralysis, and possible , the patient indicated that they understood and agreed to proceed.? An informed consent document was signed by the patient, witnessed by a nurse and placed in the patient's chart.? Additionally, other treatment options including medications and physical therapy were reviewed with the patient. All questions were answered. Site was then marked. Anesthesia: After review of previous anesthetic history and IV conscious sedation, the patient was deemed safe to proceed with today's procedure with IV conscious sedation. IV sedation was accomplished with midazolam 2 mg administered by the RN after physician order. Sedation was titrated to patient comfort during the course of the procedure. Patient remained responsive to all verbal commands. Position: Prone Monitoring: NIBP, Pulse oximetry, 3 lead EKG Needle used: 18 G 3.5? Tuohy Contrast: Isovue 300-M 2 mL Injectate: Dexamethasone 10 mg followed by Normal Saline 2 mL Technique: The skin was prepped with chloraprep and then draped in a sterile fashion. Time out was performed as per protocol. Oxygen applied via NC. Skin and subcutaneous structures of the needle entry site was then infiltrated with 3 mL of lidocaine 1%. Under AP, lateral and contralateral oblique fluoroscopic control, the Tuohy needle was guided into the C7-T1 epidural space. The space was accessed with loss of resistance technique. Isovue 300-M was then injected and the spread was consistent with the epidural space. There was no evidence for intravascular or intrathecal uptake. After negative aspiration, the above- mentioned injectate was then slowly administered and the needle withdrawn. The patient expressed no unusual discomfort or paresthesias during the injection. Band-Aids applied to injection sites. EBL: less than 1 ml Complications: None Post Procedure: Patient was taken to the recovery and monitored. The patient was provided a Pain Log to continue to record the patient's response to the target- specific procedure prior to the patient's follow-up visit with the referring physician. Patient was stable upon discharge. Detailed post procedure instructions were provided. Patient was asked to call in the event of worsening pain, fever, weakness, numbness or bladder or bowel incontinence.
== END 2023-04-24 13:53 | disposition home or self-care (01) ==
LOC: RAD 12:43
PROVIDERS: PCP Family Medicine; Referring Provider Anesthesiology; Visit Provider Anesthesiology
DX: M54.12 Radiculopathy, cervical region (principal)
CPT/HCPCS: 62321; 99152; J1100; J2250